=== PATIENT | male | born 1965 | race Caucasian/White ===

== ENCOUNTER 2020-07-22 05:50 | Day surgery (SDC) | payer OTHER ==
[~2020-07-22 05:50] MED LIST: CIPRO500 MG PO; FLAGYL500MG PO; PERCOCET 5/3251 TAB PO; RECTICARE30 GM TP
[2020-07-22] MEDS ORDERED: ANUSOL-HC25 MG RECTAL (08:33)
== END 2020-07-22 10:20 | disposition home or self-care (01) ==
LOC: AMB-ENDOS 05:50
PROVIDERS: ATTEND Surgery
DX: K62.89 Other specified diseases of anus and rectum (principal); K64.8 Other hemorrhoids; Z20.828 Contact with and (suspected) exposure to other viral communicable diseases; Z12.11 Encounter for screening for malignant neoplasm of colon